=== PATIENT | female | born 1990 | race Caucasian/White ===

== ENCOUNTER 2019-08-15 12:51 | Outpatient (CLI) | payer BC, SELFPAY ==
--- NOTE | ~2019-08-15 | CT_ITS ---
EXAMINATION: CT brain & sinus wo con INDICATION: Headache COMPARISON: None TECHNIQUE: Computed tomography (CT) of the brain and paranasal sinuses was performed without intraven ous contrast. The dose-length product (DLP) was 756.67 mGy-cm. Iterative reconstruction was used. FINDINGS: Head CT: There is no intracranial hemorrhage, acute infarction, or abnormal mass lesion. The ventricl es are normal. There is no abnormal mass effect or midline shift. The abel-white matter differentiati on is normal. The basal cisterns are patent. The orbits are normal. Sinuses: There is normal development and pneumatization of the paranasal sinuses. The frontal, spheno id, ethmoid, and maxillary sinuses are clear. The bilateral ostiomeatal complexes are patent. Visuali zed soft tissues are unremarkable. There appear be surgical changes in the medial aspect of the right maxillary sinus. IMPRESSION: 1. No acute intracranial abnormality. 2. No acute abnormality of the sinuses. Reviewed, dictated and finalized at location A.
== END 2019-08-15 12:52 | disposition home or self-care (01) ==
PROVIDERS: PCP Internal Medicine; Visit Provider Internal Medicine
DX: J34.89 Other specified disorders of nose and nasal sinuses (principal)
CPT/HCPCS: 70450; 70486

== ENCOUNTER → 2020-05-15 10:02 | Outpatient (CLI) | payer BC, SELFPAY ==
--- NOTE | ~2020-05-15 | MMUS_ITS ---
EXAMINATION: MM diagnostic alexa BI w susana, US breast BI complete HISTORY: Shooting breast pain TECHNIQUE: Additional 3-D tomosynthesis images of the breasts were performed and synthetic 2-D images were generated. CAD analysis was submitted and interpreted. High resolution bilateral complete breas t ultrasound was performed. COMPARISON: None BREAST PARENCHYMAL COMPOSITION: The breasts are extremely dense, which lowers the sensitivity of mamm ography FINDINGS: MAMMOGRAPHIC FINDINGS: There are no suspicious masses, calcifications or architectural distortion in either breast to sugges t malignancy. ULTRASOUND: Complete bilateral breast ultrasound: Normal heterogeneous echotexture without focal solid or cystic mass. IMPRESSION: 1. No mammographic or sonographic evidence for malignancy in either breast. Recommend follow-up clini constantino management for breast pain. BI-RADS CATEGORY 1 - NEGATIVE Reviewed, dictated and finalized at location A. IMPRESSION: 1. No mammographic or sonographic evidence for malignancy in either breast. Rec ommend follow-up clinical management for breast pain. BI-RADS CATEGORY 1 - NEGATIVE
== END ==
PROVIDERS: Visit Provider Obstetrics & Gynecology
DX: N64.4 Mastodynia (principal)
CPT/HCPCS: 76641; 77062; 77066; G0279

== ENCOUNTER 2021-09-12 01:05 | Day surgery (SDC) | payer OTHER, SELFPAY ==
[2021-09-11 08:28] VITALS: BMI 20.2
--- NOTE | 2021-09-11 08:33 | PC.NURSE ---
Report to the Outpatient Waiting Room, entrance under the green pavilion located off [facility], at time 1200 on date 09/12/21. OR Time: 1400. - You and your visitor will be asked a series of questions to screen for COVID 19 for your protection. - Only one visitor is allowed at this time. - The patient visitor is requested to leave or wait in car when not with patient. - A mask is required within the hospital. Patients may have clear liquids (water, carbonated beverages, clear teas, apple juice) until 3 hours prior to surgery with a maximum of 20 ounces. - No food from midnight until time of surgery Take the following medications with a SIP of water the morning of surgery: NONE Medications to discontinue per physician: VITAMINS Date to take last dose: NO MORE UNTIL AFTER SURGERY Please no make-up, nail sami, hairspray, perfume, deodorant, or body powder the day of surgery. No jewelry (including any body piercings) or valuables the day of surgery, leave them at home. Please take a shower or bath the night before, or the morning of, surgery with an antibacterial soap. Wear comfortable, loose fitting clothing. - Jewelry must be removed prior to entering the operating room. Rings and piercings that are not removed may be cut off. - The hospital will not accept responsibility for valuables. - Please leave all valuables, including medications, at home the day of surgery. If you are going home after surgery, a licensed food mobile driver must drive you home. - NO public transportation without another adult. - We recommend that an adult stay with you for 24 hours following discharge. - We also recommend that you do not drive, make important decision, drink alcoholic beverages, or take any drugs that were not prescribed by your health care provider for at least 24 hours after your discharge time. Follow any additional instructions given to you from your surgeon. If you or anyone in your household have experienced Covid symptoms in the past week, please notify your surgeon or the nurse liaison at the phone number below for possible testing. Telephone instructions given to PT - GABRIEL MILLAN and asked if any additional questions and then verbalized understanding. Patient advised to call surgeon office or pre surgery nurse liaison [phone] if any additional questions.
--- NOTE | 2021-09-12 08:03 | P.PNAN_ITS ---
Anes - Initial Pre Proc Eval Procedure: Operation Date: 09/12/21 10:00 Proposed Procedures p Suction Dilation and Curettage - Juan Pablo Rene MD Date/Time: 09/12/21 08:03 Surgeon: Juan Pablo Rene MD Pre Op Diagnosis: missed ab Patient Data Age: 30 Gender: F Height: 1.65 m Weight: 55.34 kg Allergies Allergy/AdvReac Type Severity Reaction Status Date / Time No Known Allergies Allergy Verified 09/12/21 09:16 Home Medications Medication Instructions Recorded Confirmed Type prenat.vits,constantino,uca-wzcg-vaamy 1 tablet PO DAILY 09/11/21 09/12/21 History progesterone micronized 200 mg 1 cap PO HS 09/11/21 09/12/21 History capsule Patient hx anesthesia problems: none Family hx anesthesia problems: none Results Review: All pre-operative results and documents have been reviewed as part of the pre- operative evaluation. [facility] Past Medical History Medical History Abnormal bruising Anemia Anti-cardiolipin antibody positive Surgical History Surgical History History of tonsillectomy Social History Social History Smoking status: Never smoker Second hand tobacco smoke exposure: No Alcohol intake: current Alcohol use details: RARE Substance use: never Substance use type: does not use Living arrangements: with family Spiritual care concerns: No Anes - Eval Final PreProcedure Day of Procedure 09/12/21 08:03 Patient weight: normal Heart: regular rate and rhythm Lungs: clear to auscultation and normal air movement Airway: Mallampati scale class II Neurological: alert and oriented Last oral intake: >/= 8 hours ASA classification: II Emergent: no Anesthetic plan: proceed Anesthesia type and monitoring: general GIVS Results Review: All pre-operative results and documents have been reviewed as part of the pre- operative evaluation. Informed Consent: The patient's anesthetic plan and its attendant risks and benefits were discussed with the patient/family/POA. Questions were solicited and answers provided to the satisfaction of the patient/family/POA.
[2021-09-12 08:53] VITALS: BP 110/64; PULSE 72; RESP 16; TEMP 36.8; O2SAT 100
[2021-09-12] MEDS: LACTATED RINGERS 1,000 ML 30 ML IV CONT (09:29)
[2021-09-12] MEDS: ACETAMINOPHEN 500 MG TABLET 1000 MG PO (09:37)
--- NOTE | 2021-09-12 09:51 | PM.IMHP ---
H&P: HPI History of Present Illness Date/Time: 09/12/21 09:51 Chief Complaint: Miscarriage Narrative: 30 y/o at 9w 2d with ultrasound last week showing no cardiac activity. Blood type Opos. Review of Systems Review of Systems: All systems reviewed & are unremarkable except as noted in HPI and below PMFSH Past Medical History Medical History Abnormal bruising Anemia Anti-cardiolipin antibody positive Surgical History Surgical History History of tonsillectomy Social History Social History Smoking status: Never smoker Second hand tobacco smoke exposure: No Alcohol intake: current Alcohol use details: RARE Substance use: never Substance use type: does not use Living arrangements: with family Spiritual care concerns: No Meds Home Medications and Allergies Home Medications Medication Instructions Recorded Confirmed Type prenat.vits,constantino,xbc-mcpb-mzftw 1 tablet PO DAILY 09/11/21 09/12/21 History progesterone micronized 200 mg 1 cap PO HS 09/11/21 09/12/21 History capsule Allergies Allergy/AdvReac Type Severity Reaction Status Date / Time No Known Allergies Allergy Verified 09/12/21 09:16 Vital Signs Vital Signs - 24 hr 09/12/21 08:53 Temperature 36.8 C Pulse Rate 72 Respiratory Rate 16 Blood Pressure 110/64 Pulse Oximetry 100 Oxygen Delivery Room Air Exam Const: Orientation/consciousness: patient oriented x3 Other: Well-developed, well-nourished female in no acute distress. Neck: Thyroid: thyroid normal Lymphatic: no lymphadenopathy noted (in neck, axilla or inguinal nodes) Resp: Effort & Inspection: normal respiratory effort Auscultation: clear to auscultation bilaterally Cardio: Rate: regular rate Rhythm: regular rhythm Heart sounds: S1 normal heart sound present and S2 normal heart sound present GI: Other: ABD: Soft, nontender, nondistended. No guarding or rebound tenderness. No hepatosplenomegaly. Transabdominal ultrasound by mn confirms IUP with CRL 1.1 cm, no cardiac motion. : General: Yes no CVA tenderness Other: External genitalia: normal female hair distribution, without lesion. Urethral meatus: no lesion, non prolapsed. Bladder: no mass, nontender Vagina: well-estrogenized, without lesion or discharge. No cystocele or rectocele. Cervix: no lesion or discharge. Uterus: small, anteverted, freely mobile, nontender Adnexa: no mass or tenderness. Anus/perineum: no lesions, nontender Back/Spine/Pelvis: Back: no CVA tenderness Skin: General skin exam: normal color and no rashes or lesions noted Neuro: General: patient oriented x3 Extrem: Other: Extremities: nontender with no edema Psych: Mental Status: mental status grossly normal Affect: normal affect Assessment and Plan Assessment and plan (1) Missed : Code(s): O02.1 - Missed Status: Acute Assessment and Plan: A: Missed SAB in the setting of recurrent loss. P: Offered expectant management vs. dilation and suction curettage. She prefers the latter. We will also plan to send specimen for chromosome analysis. She understands risks of surgery to include risks of anesthesia, risks of pain, infection, bleeding, blood products, thromboembolic phenomena and damage to adjacent structures such as bowel, bladder, ureters, blood vessels and nerves. She understands all these risks and elects to proceed with surgery. 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
--- NOTE | 2021-09-12 10:13 | WPDHPUPDATE1 ---
History and Physical Update Update Date/Time: 09/12/21 10:13 History and Physical has been reviewed, including an updated exam of the patient. There are NO changes in the patient's condition. Risks, benefits, and alternatives have been discussed and questions answered. Patient agrees to proceed with procedure.
[2021-09-12 10:54] VITALS: BP 110/72; PULSE 68; RESP 16; TEMP 36.4; O2SAT 100
--- NOTE | 2021-09-12 10:54 | W.PM.PROC2 ---
Procedure Note - Detailed Date of Procedure 09/12/21 Pre-op Diagnosis Missed spontaneous Post-op Diagnosis Same Procedure Performed Dilation and suction curettage Surgeon Juan Pablo Rene MD Anesthesia MAC and Local (1% lidocaine) Findings Products of conception Description of Procedure The patient was taken to the operating room where she was prepared and draped in the usual sterile fashion in the dorsal lithotomy position. The bladder was drained with a red rubber catheter. A sterile speculum was placed into the vagina. The anterior lip of the cervix was grasped with a single-tooth tenaculum. Ten mL of 1% lidocaine was administered in a paracervical block. The cervix was gently dilated using Hegar dilators until an 8mm dilator could be passed. The 8mm curved tip suction curette was advanced. Suction curettage was performed and products of conception were aspirated. Sharp curettage was then performed until a good uterine cry was noted. A final pass with the suction curette was made. The tenaculum was removed. Hemostasis was excellent. Sponge, lap, needle and instrument counts were correct. The patient was taken to the recovery room in stable condition. I was present and scrubbed for the entire procedure. Implants None Estimated Blood Loss 30 Drains No Packing No Pathology Yes (Endometrial curettings) Complications None Condition Stable Disposition PACU
--- NOTE | 2021-09-12 11:06 | SUR.PHASEI ---
1106: Simple mask removed.
--- NOTE | 2021-09-12 11:08 | SUR.PHASEI ---
Patient is O+ blood type. No Rhogam needed.
[2021-09-12 11:10] VITALS: BP 99/39; PULSE 57; RESP 12; TEMP 37.3; O2SAT 100
[2021-09-12 11:25] VITALS: BP 98/64; PULSE 59; RESP 15; TEMP 37.4; O2SAT 100
[2021-09-12 11:40] VITALS: BP 103/73; PULSE 58
[2021-09-12 12:00] VITALS: BP 103/70; PULSE 56; RESP 20
== END 2021-09-12 12:07 | disposition home or self-care (01) ==
PROVIDERS: PCP Internal Medicine; Visit Provider Obstetrics & Gynecology
PROC: (CPT 59820; principal; 2021-09-12 10:00)
DX: O02.1 Missed abortion (principal); Z3A.09 9 weeks gestation of pregnancy; N96 Recurrent pregnancy loss
CPT/HCPCS: 59820; 36415; 85461; 88305; A9270; J1100; J1885; J2250; J2405; J2590; J2704; J3010; J7120

== ENCOUNTER 2021-11-24 06:45 | Outpatient (RCR) | payer OTHER, SELFPAY ==
--- NOTE | 2021-11-24 10:08 | PCPTNOTE ---
Patient did not show up for scheduled initial evaluation this date.
== END 2022-02-22 23:59 | disposition home or self-care (01) ==
LOC: ANHGOSHPT 06:45
PROVIDERS: PCP Internal Medicine; Visit Provider Internal Medicine
DX: M79.622 Pain in left upper arm (principal)
CPT/HCPCS: 99199

== ENCOUNTER 2022-04-13 10:45 | Outpatient (CLI) | payer OTHER, SELFPAY ==
[2022-04-13 11:37] LABS: Strep Group A RT-PCR NOT DETECTED (Negative)
== END 2022-04-13 10:46 | disposition home or self-care (01) ==
LOC: ANHLAB 10:47
PROVIDERS: PCP Internal Medicine; Visit Provider Internal Medicine
DX: J02.9 Acute pharyngitis, unspecified (principal)
CPT/HCPCS: 87651

== ENCOUNTER 2022-04-28 07:06 | Emergency (ER) | payer OTHER, SELFPAY ==
[2022-04-28 07:15] VITALS: BP 112/66; PULSE 92; RESP 16; TEMP 37.2; O2SAT 99
[2022-04-28 07:26] VITALS: O2SAT 99
[2022-04-28 07:55] VITALS: BP 113/78; PULSE 97; RESP 18; O2SAT 100
[2022-04-28 08:03] LABS: Strep Group A RT-PCR DETECTED (Negative)
[2022-04-28 08:19] LABS: Influenza A QL RT-PCR Negative (Negative); Influenza B QL RT-PCR Negative (Negative); RSV RNA, RT-PCR Negative (Negative); SARS-CoV-2 RNA PCR Negative
--- NOTE | 2022-04-28 08:28 | ED.GENADULT ---
HPI - General Adult General Chief complaint: Upper Respiratory Infection Stated complaint: sore throat Time Seen by Provider: 04/28/22 07:09 History of Present Illness HPI narrative: 31-year-old female with history of previous tonsillectomy and current at 16 weeks presenting to the emergency department for evaluation of sore throat that started yesterday. Patient states the sore throat is worsened with swallowing. Patient denies any difficulty breathing and is handling her secretions. Patient does report some sore lymph nodes as well. Patient denies any associated nausea or vomiting. Patient denies any abdominal pain or cramping. Related Data Home Medications Medication Instructions Recorded Confirmed prenat.vits,constantino,bod-etlr-ejyqm 1 tablet PO DAILY 09/11/21 02/10/22 Allergies Allergy/AdvReac Type Severity Reaction Status Date / Time No Known Allergies Allergy Verified 04/28/22 07:20 Review of Systems Review of Systems: CONSTITUTIONAL: Denies fever, chills, or sweats. EYES: Denies visual changes, redness, or discharge. ENT: Sore throat, see HPI CARDIOVASCULAR: Denies chest pain, palpitations, or edema. RESPIRATORY: Denies cough or dyspnea. GASTROINTESTINAL: Denies abdominal pain, nausea, vomiting, or diarrhea. GENITOURINARY: Denies dysuria or hematuria. SKIN: Denies rash or itching. MUSCULOSKELETAL: Denies back pain, joint pain, or myalgia. NEUROLOGIC: Denies headache, numbness, or weakness. [facility] Past Medical History Medical History Abnormal bruising Anemia Anti-cardiolipin antibody positive Surgical History Surgical History History of tonsillectomy Social History Social History Smoking status: Never smoker Second hand tobacco smoke exposure: No Alcohol intake: current Alcohol use details: RARE Substance use: never Substance use type: does not use Lack of Transportation: No Lack of Food: Never True Current Housing: I Have Housing Concerned About Future Housing: No Difficulty Paying Gas/Electric Bills: No Difficulty Paying for Meds: No Currently Unemployed: No Difficulty w/ Childcare or Family Care: No Living arrangements: with family Spiritual care concerns: No Exam Narrative: APPEARANCE: Well appearing, no pain, no distress, well-nourished. HEAD: normocephalic, atraumatic. EYES: PERRLA/EOMI, conjunctivae clear. NOSE: Normal no drainage EARS:TMS clear with good light reflex. THROAT: Mild posterior pharynx erythema, no swelling, no asymmetry, uvula midline NECK: Supple. Mild cervical lymphadenopathy RESPIRATORY: Airway patent, respirations nonlabored. Clear to auscultation bilaterally, no rales, rhonchi, wheezing. CARDIOVASCULAR: Regular rate and rhythm without murmurs rubs or gallops. ABDOMINAL: Soft, nontender, nondistended, normal bowel sounds MUSCULOSKELETAL: Moves all extremities. Strength/ROM intact, No edema, No calf tenderness. NEURO: Alert. Cranial nerves II through XII intact. Grossly intact SKIN: Warm, dry. Normal Color Course Course Emergency Course: 31-year-old female who is 16 weeks with sore throat for the last few days. Patient did test positive for strep. Patient was negative for COVID influenza and RSV. Exam shows no evidence of a peritonsillar or posterior pharyngeal abscess. Patient was started on antibiotics in the emergency department. Patient was discharged home with a prescription for amoxicillin. All questions concerns were addressed and patient was comfortable with the plan for discharge and close follow-up. Vital Signs Vital signs: Vital Signs Temperature 98.9 F 04/28/22 07:15 Pulse Rate 92 04/28/22 07:15 Respiratory Rate 16 04/28/22 07:15 Blood Pressure 112/66 04/28/22 07:15 Pulse Oximetry 99 04/28/22 07:15 Oxygen Delivery R
[2022-04-28] MEDS: AMOXICILLIN 500 MG CAPSULE PO (08:34)
[2022-04-28 08:35] VITALS: BP 112/76; PULSE 94; RESP 18; O2SAT 99
== END 2022-04-28 08:36 | disposition home or self-care (01) ==
PROVIDERS: Emergency Provider Emergency Medicine; PCP Internal Medicine
DX: J02.0 Streptococcal pharyngitis (principal)
CPT/HCPCS: 87637; 87651; 99283; A9270

== ENCOUNTER 2022-10-10 23:59 | Outpatient (RCR) | payer OTHER, SELFPAY ==
[2022-10-11 00:10] VITALS: PULSE 75; O2SAT 99
[2022-10-11 00:15] VITALS: PULSE 72; O2SAT 99
[2022-10-11 00:16] VITALS: BP 115/67; PULSE 70
[2022-10-11 00:20] VITALS: PULSE 73; O2SAT 98
[2022-10-11 00:25] VITALS: PULSE 72; O2SAT 98
--- NOTE | 2022-10-11 06:38 | PM.OBTRLD ---
OB - Triage/Final Diagnosis Visit Information Date of evaluation: 10/10/22 Reason for evaluation: decreased movement Comments/Additional reasons for admission: I have assessed the risk for this patient, June Huber Mcgee, and determined that she would benefit from observation care. Evaluation Vital signs: Vital Signs - 24 hr 10/11/22 00:10 10/11/22 00:15 10/11/22 00:16 Pulse Rate 70 Blood Pressure 115/67 Pulse Oximetry 99 99 10/11/22 00:20 10/11/22 00:25 Pulse Rate Blood Pressure Pulse Oximetry 98 98
== END 2022-12-09 11:48 | disposition home or self-care (01) ==
LOC: ANHLDR 23:59
PROVIDERS: Visit Provider Obstetrics & Gynecology
DX: O36.8190 Decreased fetal movements, unspecified trimester, not applicable or unspecified (principal); Z3A.39 39 weeks gestation of pregnancy
CPT/HCPCS: 59025

== ENCOUNTER 2022-10-12 23:14 | Inpatient (IN) | payer OTHER, SELFPAY ==
--- NOTE | 2022-10-12 23:52 | LDADM ---
This patient, June Mcgee, was admitted to Labor/Delivery/Recovery 105 on 10/12/22 at 23:14. Plans for labor, pain management and were discussed with patient. Patient/family oriented to hospital policies and general routines including ID bracelet, bed and alarms, visiting hours, pain management, procedures, bathroom and other care routines, personal items, smoking policy, room service/diet and guest tray routines, infant security routines, and visiting hours. Patient/Family are encouraged to report perceived risks to care and to ask questions if they do not understand what they are told or what they should do. See OBIX for further documentation.
[2022-10-13] VITALS (122 sets, daily range): BP systolic 77–170; BP diastolic 30–120; PULSE 28–282; RESP 16–18; TEMP 36.3–37.1; O2SAT 80–100; BMI 26.5
[2022-10-13] MEDS: LACTATED RINGERS 1,000 ML 125 ML IV CONT (00:18)
[2022-10-13] MEDS: AMPICILLIN 2 GM/NS 100 ML 2 GM/100 ML BAG IVPB (00:20)
[2022-10-13 00:24] LABS: Basophils Percent Auto 0.1 % (0.2-1.2); Eosinophils Absolute Auto 0.1 K/mm3 (0-0.3); Eosinophils Percent Auto 0.9 % (0-4.4); Hematocrit 32.5 % (37.0-47.0); Immature Granulocyte Absolute 0.04 K/mm3 (0.00-0.031); Immature Granulocyte Percent A 0.4 % (0-0.5); Lymphocytes Absolute Auto 2.47 K/mm3 (0.9-3.2); Mean Corpuscular HGB Conc 33.8 g/dl (32-36); Mean Corpuscular Hemoglobin 31.6 pg (26-34); Mean Corpuscular Volume 93.4 fl (80-100); Monocytes Absolute Auto 0.8 K/mm3 (0.1-0.6); Monocytes Percent Auto 7.7 % (2.6-8.5); Neutrophils Absolute Auto 6.9 K/mm3 (1.3-6.7); Neutrophils Percent Auto 66.9 % (45.5-73.1); Platelet Count Result 213 k/mm3 (150-375); Red Blood Count 3.48 M/mm3 (4.2-5.4); Red Cell Distribution Width 13.4 % (11.5-14.5); White Blood Count 10.3 K/mm3 (4.5-10.0)
--- NOTE | 2022-10-13 01:28 | WPDANESEPP ---
Anes - Eval Pre Procedure Procedure: labor epidural Date/Time: 10/13/22 01:28 Surgeon: tyrel Preop Diagnosis: pain during labor Pre Op Diagnosis: contractions Patient Data Age: 32 Gender: F Height: 1.65 m Weight: 72.27 kg Last Vital Signs Pulse 80 10/13/22 01:26 BP 116/64 10/13/22 01:26 Pulse Ox 100 10/13/22 01:27 O2 Del Method Room Air 10/13/22 00:08 Allergies Allergy/AdvReac Type Severity Reaction Status Date / Time No Known Allergies Allergy Verified 04/28/22 07:20 Home Medications Medication Instructions Recorded Confirmed Type prenat.vits,constantino,lul-wqpj-lgvvn 1 tablet PO DAILY 09/11/21 02/10/22 History aspirin 81 mg tablet 81 mg PO 10/08/22 History Laboratory Tests 10/13/22 00:07 WBC 10.3 H K/mm3 (4.5-10.0) RBC 3.48 L M/mm3 (4.2-5.4) Hgb 11.0 L g/dL (12.0-15.0) Hct 32.5 L % (37.0-47.0) MCV 93.4 fl (80-100) MCH 31.6 pg (26-34) MCHC 33.8 g/dl (32-36) RDW 13.4 % (11.5-14.5) Plt Count 213 k/mm3 (150-375) MPV 11.0 H fl (7.4-10.4) Immature Gran % (Auto) 0.4 % (0-0.5) Neut % (Auto) 66.9 % (45.5-73.1) Lymph % (Auto) 24.0 % (18.3-44.2) [place] % (Auto) 7.7 % (2.6-8.5) Eos % (Auto) 0.9 % (0-4.4) Baso % (Auto) 0.1 L % (0.2-1.2) Lymph # (Auto) 2.47 K/mm3 (0.9-3.2) [place] # (Auto) 0.8 H K/mm3 (0.1-0.6) Eos # (Auto) 0.1 K/mm3 (0-0.3) Baso # (Auto) 0.0 K/mm3 (0.0-0.1) Abs Immat Gran (auto) 0.04 H K/mm3 (0.00-0.031) Absolute Neuts (auto) 6.9 H K/mm3 (1.3-6.7) Absolute Nucleated RBC 0.0 K/mm3 (0.0-0.012) Nucleated RBC % 0.0 % (0.0-0.2) RPR Pending Blood Type O Positive Antibody Screen Negative Patient hx anesthesia problems: none Family hx anesthesia problems: none Results Review: All pre-operative results and documents have been reviewed as part of the pre-operative evaluation. [facility] Past Medical History Medical History Abnormal bruising Anemia Anti-cardiolipin antibody positive Surgical History Surgical History History of tonsillectomy Family History Family History (Updated 10/08/22 @ 14:38 by Raeann Villagran RN) Other Patient denies significant medical history Social History Social History Smoking status: Never smoker Second hand tobacco smoke exposure: No Alcohol intake: current Alcohol use details: RARE Substance use: never Substance use type: does not use Lack of Transportation: No Lack of Food: Never True Current Housing: I Have Housing Concerned About Future Housing: No Difficulty Paying Gas/Electric Bills: No Difficulty Paying for Meds: No Currently Unemployed: No Education: Associate Degree Difficulty w/ Childcare or Family Care: No Living arrangements: with family Spiritual care concerns: No Exam Day of Procedure 10/13/22 01:28
[2022-10-13] MEDS: AMPICILLIN 1 GM/NS 50 ML 1 GM/50 ML BAG IVPB (04:05)
[2022-10-13] MEDS: OXYTOCIN 30 UNITS/NS 500 ML 30 UNITS/500 ML BAG 999 UNITS IV CONT (05:07)
--- NOTE | 2022-10-13 05:18 | WPDOBADMIT ---
Obstetrics - Admit Note Admission Note: record reviewed. Additions to the history and/or subsequent changes in the physical findings follow. 32 y/o at 40 weeks who presented with contractions. Labor diagnosed. She received ampicillin for GBS pos. SROM with clear fluid. Labor has progressed without stimulation. Comfortable with epidural. AVSS NST reactive TOCO: contractions every 3 min ABD soft, nontender, gravid, vertex EXT nontender Cervix complete / +2 on my arrival A: IUP at term with labor. GBS colonization. P: Ampicillin. See delivery note.
--- NOTE | 2022-10-13 05:20 | P.PCNOB_ITS ---
OB - Delivery Note Procedure Delivery date: 10/13/22 Procedure: Events: Positive Group B Strep (GBS) Induction method: None Delivery monitor: External FHT and External Uterine Route of delivery: Laceration Description: None Specimen: Yes (cord blood) Quantitative Blood Loss (ml): 120 Anesthesia type: Epidural Disposition: PACU Complications: None Narrative: 32 y/o at 40 weeks gestation who presented to the hospital with contractions. Labor diagnosed. She was given ampicillin for GBS colonization. She received an epidural for pain control. Her labor progressed and her cervix dilated completely. She pushed with good effort and delivered the infant's head to the perineum, followed by the body. The nose and mouth were bulb suctioned. After a delay, the cord was clamped and cut. The was handed off the field. Cord blood was collected. The placenta delivered spontaneously and was grossly normal in appearance. The usual 3 vessel cord was noted. There were no lacerations. Needle and instrument counts were correct. The patient was taken to recovery room in stable condition. The infant went to the nursery in stable condition. I was present and scrubbed for the entire delivery. [place] Baby Date of : 10/13/22 Time of : 05:07 Weeks of gestation at delivery: 40 gender: Male Weight (pounds): 7 Weight (ounces): 8 presentation: vertex position: Left Occiput Anterior Placenta delivery description: Spontaneous and Normal Configuration Cord Vessel Description: 3 Vessels and Delayed Cord Clamping score one minute: 8 score five minutes: 9
--- NOTE | 2022-10-13 05:23 | P.DS_ITS ---
DS: Admitting Diagnosis Discharge Date 10/14/22 Admitting Diagnosis IUP at 40 weeks GBS colonization DS: Discharge Diagnosis Discharge Diagnosis (1) (normal spontaneous vaginal delivery): Code(s): O80 - Encounter for full-term uncomplicated delivery Status: Acute (2) GBS (group B Streptococcus carrier), +RV culture, currently : Code(s): O99.820 - Streptococcus B carrier state complicating Status: Acute OB - DS: Summary OB Procedures : None OB Procedures Intrapartum: Spontaneous Vag Delivery and GBS prophylaxis OB Procedures: : None Time Spent with Patient Time attestation: Total time spent providing and/or coordinating discharge services: DS: Data Data Completed and Pending Labs on day of discharge: Labs from last 24 hours 10/13/22 00:07 WBC 10.3 H RBC 3.48 L Hgb 11.0 L Hct 32.5 L MCV 93.4 MCH 31.6 MCHC 33.8 RDW 13.4 Plt Count 213 MPV 11.0 H Immature Gran % (Auto) 0.4 Neut % (Auto) 66.9 Lymph % (Auto) 24.0 [place] % (Auto) 7.7 Eos % (Auto) 0.9 Baso % (Auto) 0.1 L Lymph # (Auto) 2.47 [place] # (Auto) 0.8 H Eos # (Auto) 0.1 Baso # (Auto) 0.0 Abs Immat Gran (auto) 0.04 H Absolute Neuts (auto) 6.9 H Absolute Nucleated RBC 0.0 Nucleated RBC % 0.0 RPR Pending Blood Type O Positive Antibody Screen Negative Discharge Plan Discharge Attending physician on discharge: Juan Pablo Rene Discharging Clinician: Juan Pablo Rene Patient Disposition: Home, Self-Care Activity: pelvic rest Diet: regular Discharge Instructions: Call or return if temperature above 100.4? F, increased abdominal pain, increased vaginal bleeding or any new problems. Stand Alone Forms: General Discharge Information Follow-up/Referrals: Juan Pablo Rene MD [Physician] - 6 Weeks Discharge Medications: New ibuprofen 600 mg tablet 600 mg PO Q6H PRN (Reason: cramps) Qty: 30 0RF Continued prenat.vits,constantino,anf-yuby-tfgdg Tablet 1 tablet PO DAILY Discontinued Adult Low Dose Aspirin 81 mg Tablet 81 mg PO Date of admission: 10/12/22 23:14 Primary Care Provider: PHYSICIAN,ELEVATOR OPERATOR FREIGHT Admitting Provider: Juan Pablo Rene Attending physician on admission: Juan Pablo Rene Condition: Stable
[2022-10-13] MEDS: OXYTOCIN 30 UNITS/NS 500 ML 30 UNITS/500 ML BAG 125 UNITS IV CONT (05:45)
[2022-10-13] MEDS: IBUPROFEN 600 MG TABLET PO ×2 (08:00→17:14)
[2022-10-13 12:13] LABS: Rapid Plasma Reagin Non-Reactive (NonReactive)
[2022-10-14] MEDS: IBUPROFEN 600 MG TABLET PO ×2 (00:18→09:02)
[2022-10-14] MEDS: ACETAMINOPHEN 325 MG TABLET 650 MG PO ×2 (00:19→09:03)
[2022-10-14 05:25] LABS: Hematocrit 30.1 % (37.0-47.0)
[2022-10-14 07:50] VITALS: BP 105/63; PULSE 72; RESP 18; TEMP 36.6; O2SAT 98
[2022-10-14 08:00] VITALS: PULSE 72; RESP 18; O2SAT 98
[2022-10-14] MEDS: MULTIVIT/MIN/PREN/FOL AC/IRON TABLET 1 TAB PO (09:02)
--- NOTE | 2022-10-14 12:19 | PM.OBPNVD ---
OB - PN: Subj Subjective Date/time seen: 10/14/22 12:19 Narrative: Pain OK. Would like circumcision for son. Would like to go home today. OB - PN: Obj Data Labs 10/14/22 04:49 Labs: Laboratory Results - last 24 hr 10/14/22 04:49 Hgb 10.0 L Hct 30.1 L OB - PN A/P Plan Comments: A: PPD#1, doing well. P: Reviewed circ. Home to f/u 6 weeks. Exam Psych: Other: AVSS ABD soft, nontender, fundus firm EXT nontender
--- NOTE | 2022-10-14 17:18 | PC.NURSE ---
[id number] Introductions were made, then consulted with patient to assess needs related to . Mother led the conversation with her?plans to feed?her , the experience so far and states she is able to independently latch with appropriate positioning/alignment. She denies any nipple discomfort and is responsively . Infant is currently meeting outcomes for weight, output, jaundice and feeding frequencies of 8-12 times in 24 hours. Reviewed how to visualize and listen for swallowing at the breast. Mother declines any additional assistance/education at this time. Mother is encouraged to call for assistance if her doesn?t latch, there is discomfort with latching or for a latch assessment. Mother voiced understanding of information shared and the mom reminded of the mom/baby guide for an additional resource.
--- NOTE | 2022-10-14 19:07 | PC.NURSE ---
1430-Patient was given the opportunity to view the discharge video Mother & Baby Care, The First Two Weeks and to ask questions. Patient declined viewing the video and has been given the mother/baby guide for home reference.
[2022-10-15 09:28] VITALS: BP 120/70; PULSE 72; RESP 18; TEMP 36.9; O2SAT 100
== END 2022-10-14 17:50 | disposition home or self-care (01) | DRG 807 ==
LOC: ANHLDR 10-13 05:24 → ANHOB2 10-13 07:47
PROVIDERS: Admitting Provider Obstetrics & Gynecology; Visit Provider Obstetrics & Gynecology
DX: O99.824 Streptococcus B carrier state complicating childbirth (principal); Z37.0 Single live birth; Z3A.40 40 weeks gestation of pregnancy
CPT/HCPCS: 36415; 85014; 85018; 85025; 86592; 86850; 86900; 86901; A9270; J0290; J2590; J2795; J7120

== ENCOUNTER 2024-06-29 10:24 | Outpatient (CLI) | payer OTHER, SELFPAY ==
--- NOTE | ~2024-06-29 | US_ITS ---
Left upper ULTRASOUND (Doppler ultrasound interrogation techniques used as needed for this exam.) Ordering provider: Rod Álvarez MD History: . R22.1 - Localized swelling, mass and lump, neck . Comparison: None. FINDINGS/impression: Hypoechoic area is noted inferior to the left ear measuring 0.5 x 0.9 x 0.3 cm most likely a lymph no de. Follow-up advised. Another similar lesion is seen in the right side of the neck measuring 0.6 x 0.6 x 0.3 cm. This was d one for comparison. Reviewed, dictated and finalized at location A.
== END 2024-06-29 10:25 | disposition home or self-care (01) ==
PROVIDERS: PCP Internal Medicine; Visit Provider Internal Medicine
DX: H93.8X2 Other specified disorders of left ear (principal); R22.1 Localized swelling, mass and lump, neck
CPT/HCPCS: 76536

== ENCOUNTER 2024-07-06 09:27 | Outpatient (CLI) | payer OTHER, SELFPAY ==
--- NOTE | ~2024-07-06 | CT_ITS ---
CT soft tissue neck w con Ordering provider: Rod Álvarez MD History: 33 years Female with . include base of skull . Comparison: None Technique: CT soft tissues neck was performed with contrast. . Automated exposure control and iterat ariana reconstruction technique were employed. The dose-length product was 283.12 mGy-cm. 75 mL Omnipaqu e 350 was given IV. Findings: LOWER HEAD: The visualized brain parenchyma, optic globes/orbits and mastoids are normal. The visua lized paranasal sinuses are well aerated. Tiny left intracranial vertebral artery. Small caliber of the left vertebral artery in the neck. SALIVARY GLANDS: Normal. THYROID: Normal. SUPRAHYOID DEEP SPACES: Normal. CAROTID ARTERIES: Normal. JUGULAR VEINS: Normal. TONSILS: Normal. ORAL CAVITY: normal as visualized. PHARYNX, LARYNX AND TRACHEA: Patent and normal. No prevertebral soft tissue swelling. SUPERFICIAL SOFT TISSUES: Normal. No lymphadenopathy or neck mass. Small lymph nodes are seen bilater ally. THORACIC INLET/VISUALIZED UPPER CHEST: Normal. SKELETAL: Normal. IMPRESSION: No definite abnormality seen. . Reviewed, dictated and finalized at location A.
--- OUTSIDE RECORDS SUMMARY | 2024-07-06 09:48 | XMS_ITS | Clinical Summary ---
Author Organization [facility] Address [address] [address] Care Team Providers Care Splitting Machine Operator Name Role Phone Unavailable Primary Care Provider Unavailabl e Encounters Date Type Department Care Team Description 06/13/2024 External Device Data STL ABSTRACTION Provider, Abstract 05/17/2024 External Device Data STL ABSTRACTION Provider, Abstract 05/17/2024 External Device Data STL ABSTRACTION Provider, Abstract 05/06/2024 External Device Data STL ABSTRACTION Provider, Abstract 05/05/2024 External Device Data STL ABSTRACTION Provider, Abstract 05/03/2024 External Device Data STL ABSTRACTION Provider, Abstract 04/19/2024 External Device Data STL ABSTRACTION Provider, Abstract from Last 3 Months Immunizations Immunization Administration Dates Next Due INFLUENZA VACCINE TRIVALENT SPLIT VIRUS, (6 MOS UP), 0.5ML (PF), IM 03/29/2024 Social History Tobacco Use Types Packs/Day Years Used Date Smoking Tobacco: Never Assessed Comments Unknown Sex and Gender Information Value Date Recorded Sex Assigned at Not on file Legal Sex Female 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
--- OUTSIDE RECORDS SUMMARY | 2024-07-06 09:48 | XMS_ITS | Continuity of Care Document ---
Author Organization [facility] Address [address] [place] [address] [place] [address] Phone Care Team Providers Care Cloth Washer Operator Name Role Phone David Trevino MD Unavailable Unavailable Allergies, Adverse Reactions, Alerts Substance Reaction Status Criticality codeine Active No Information Medications Medication Instructions Dosage Effective Dates (start - stop) Status Comments Xanax 0.5 mg tablet take 1 tablet (0.5MG) by oral route every 4 - 6 hours 0.5 MG - Active avoid driving or operate machines Procedures Procedure Date OFFICE/OUTPATIENT VISIT, EST PREV VISIT, EST, AGE 18-39 Advance Directives Directive Yes / No Effective Date File Name No Information Encounters Encounter Description Practice Location Reason(s) For Visit Diagnoses Date Provider Providers Copied on Encounter OFFICE/OUTPA TIENT VISIT, EST [facility], [place], [address], [place], [place], [id number], [place] tel:[phone] [facility] [place] anxiety (chief complaint)a bdominal pain (chief complaint) Generalized anxiety disorderAbdominal Pain [address], [place], [place], [id number] , [place]. tel:[phone] Referring Provider: David Trevino, [address], [place], [place], [id number]. tel:[phone] PREV VISIT, EST, AGE 18-39 [facility], [place], [address], [place], [place], [address], [place] tel:[phone] [facility] [place] preventive exam (chief complaint) Routine Medical ExamRoutine Medical Exam [address] U[address]. [address], [place], [place], [id number] , [place]. [phone] Family History Family Member Type Diagnosis Age At Onset Mother Problem (finding) Alive and well Father Problem (finding) Alive and well Brother Problem (finding) Alive and well Payers Payer name Insurance type Covered green party ID Authoriza tion(s) No Information Social History Type Description Quantity Date Captured Comments Alcohol Use Details Caffeine Use Details Unknown Tobacco Use Status No Information Smoking Status Never smoker Sex Female Vital Signs Date / Time: Height Weight BMI Pulse Rate Blood Pressure Temperature Respiratory Rate Body Surface Area Head Circumference BMI percentile Pulse Ox Inhaled Ox 4:34 PM 126.00 lbs 77 /min 129/76 mm[Hg] 98.9 F 16 /min Chief Complaint And Reason For Visit From encounter dated '04/27/2012 14:45'. anxiety (chief complaint) abdominal pain (chief complaint) Plan Of Treatment Date Type Action Status No Information History Of Present Illness Encounter Date Complaint History Of Prese nt Illness No Information Instructions Date Instruction Additional Infor mation Perform monthly self breast exam inations. Related to Routine Medical Exam Quit smoking. Related to Deepikai ne Medical Exam Increase activity. Related to Meka presley Medical Exam Assessments Type Assessment Date No Information Mental Status Date Cognitive Assessment Orientation - [place] ed to time, place, person, situation.
--- OUTSIDE RECORDS SUMMARY | 2024-07-06 09:48 | XMS_ITS | Clinical Summary ---
Author Organization [facility] Address [address] [place] [address] Care Team Providers Care Gourmet Coffee Attendant Name Role Phone Provider, No Pcp Primary Care Provider Unavailab Nerissa Baeza APRN-OUTDOOR STUDIES DIRECTOR Unavailable [phone] Source Comments [facility],non-owned Affiliates and Associated Physician Practices is amultiple site organization consisting of ambulatory clinics and hospital sitesin [place], [place], [place] and [place]. This disclosure is being madepursuant to the Care Everywhere program and may not contain all information available regarding this patient. Last updated [facility] Allergies No known active allergies Medications * Be aware that medications may not be up to date on this document. Alwaysverify current medications with the patient. 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 There is no weakness or ptosis, fatigability, oculomotor deficit, or other symptoms. Patient's main concern is concern is asymmetry and she identifies right eye as changed, however it is left eye that has extra fold of skin on my examination. She noticed this difference after of her first child. Eyes are symmetrically placed in sockets without proptosis or edema to suggest retro-orbital mass and she reports no change in vision. As far as I can tell this is a cosmetic issue and deferred management to spoon maker. I agree with thyroid testing that is pending, although doubt this would reveal cause based on examination. She can follow up in neurology clinic as needed Anal fissure 01/26/2017 Rectal bleeding 01/26/2017 Overview (02/16/2018): Last Assessment & Plan: The bleeding appears to be related to an anterior anal fissure. Rectal exam reveals no blood present. Patient has noticed a slight improvement in her bleeding over the past few weeks. She will only have it with a bowel movement and only now with wiping. I recommend stool softener and Anusol-HC cream 2.5% applied twice a day for up to 2 weeks. If she continues to experience bleeding then I advised her to call me, which time we will consider a topical calcium channel kendra such as nifedipine gel. and colonoscopy may be necessary. Acne vulgaris 05/01/2016 Nausea 03/21/2013 Abdominal distension (gaseous) 03/21/2013 Abdominal bloating 03/21/2013 Resolved Problems Problem Noted Date Diagnosed Date Resolved Date Constipation 03/21/2013 06/28/2017 Immunizations Immunization Administration Dates Next Due DTP 10/10/1993, 1,03/16/1989,1988,1988 FLU VACCINE TRI IIV3 SPLIT P F IM (FLUVIRIN) 12/30/2015 HIB VACCINE 12/23/1989 INFLUENZA VACCINE 12/17/2017 INFLUENZA VACCINE, CELL CULT URE, QUADR. (FLUCELVAX QUADRIVALENT; 6MO+) (CCIIV4) 12/30/2016 INFLUENZA VACCINE, QUADR. (F LUZONE; FLULAVAL; FLUARIX; AFLURIA QUADRIVALENT; 6MO+), 0.5 ML (IIV4) 12/21/2019,01/10/2019,11/21/2017 MMR 1992,01/28/1990 POLIO OPV 10/10/1993, 1,01/29/1989,1988 TDAP (7yrs+) 12/29/2015 Family History Medical History Relation Name Comments None Known Brother Status: Alive Hypertension Father None Known Mother Status: Alive None Known Sister Status: Alive Cancer - Skin, Melanoma Neg Hx Cancer - Skin, Non Melanoma Neg Hx Relation Name Status Comments Brother Father Mother Sister Social History Tobacco Use Types Packs/Day Years Used Date Smoking Tobacco: Never Smokeless Tobacco: Never Alcohol Use Standard Drinks/Week Comments No 0 (1 standard drink = 0.6 oz pur e alcohol) Comments No Sex and Gender Information Value Date Recorded Sex Assigned at Not on file Legal Sex Female 5:27 PM OUTDOOR STUDIES DIRECTOR Gender Identity Not on file Sexual Orientation Not on file Occupation Industry Job Start Date Job End Date stay at home mom Not on file Not on file Not on file Last Filed Vital Signs Vital Sign Reading Time Taken Comments Blood Pressure 111/76 06/30/2023 3:15 PM CDT Pulse 80 06/30/2023 3:15 PM CDT Temperature 36.7 C (98 F) 03/11/2020 9:05 AM OUTDOOR STUDIES DIRECTOR Respiratory Rate 15 03/11/2020 9:05 AM OUTDOOR STUDIES DIRECTOR Oxygen Saturation 98% 03/11/2020 9:05 AM OUTDOOR STUDIES DIRECTOR Inhaled Oxygen Concentration - - Weight 59 kg (130 lb) 06/30/2023 3:15 PM CDT Height 166.4 cm (5' 5.5 ) 06/30/2023 3:15 PM CDT Body Mass Index 21.3 06/30/2023 3:15 PM CDT Plan of Treatment Health Maintenance Due Date Last Done Comments PAP SMEAR 1988 HIV SCREENING 09/18/2003 HEPATITIS C SCREENING 09/13/2006 HEPATITIS B VACCINE (1 of 3 - 19+ 3-dose series) 09/18/2007 COVID-19 VACCINE ( season) 2023 02/06/2021, 05/24/2020, 04/29/2020 DEPRESSION SCREENING 03/01/2024 INFLUENZA VACCINE (Season Ended) 2024 12/21/2019, 01/10/2019, 12/17/2017, Additional history exists DTAP/TDAP/TD VACCINES (7 - Td or Tdap) 12/28/2025 12/29/2015, 10/10/1993, 04/04/1990, Additional history exists ZOSTER VACCINE (1 of 2) 2038 HIB VACCINE Completed 12/23/1989 HPV VACCINE Aged Out No longer eligi ble based on patient's age to complete this topic MENINGOCOCCAL (Group B) VACCINE SHARED DECISION-MAKING Aged Out No longer eligible based on patient's age to complete this topic MENINGOCOCCAL GROUPS A/C/Y/W VACCINE Aged Out No longer eligible based on patient's age to complete this topic PNEUMOCOCCAL VACCINE Aged Out No long er eligible based on patient's age to complete this topic Insurance [employer] Commercial Managed Care - [facility] Address: [address] [place] [address] Care Teams Gourmet Coffee Attendant Relationship Specialty Start Date End Date Provider, No Pcp PCP - General 06/30/23 Nerissa Allen APRN-OUTDOOR STUDIES DIRECTOR [address] [place] [id number] PCP - Attributed-[employer] ROBERTO Commerical MD 05/31/23
== END 2024-07-06 09:28 | disposition home or self-care (01) ==
PROVIDERS: PCP Internal Medicine; Visit Provider Internal Medicine
DX: R22.1 Localized swelling, mass and lump, neck (principal)
CPT/HCPCS: 70491; Q9967